=== PATIENT | male | born 1955 | race Caucasian/White ===

== ENCOUNTER 2019-01-13 15:50 | Emergency (ER) | payer BC ==
[~2019-01-13] VITALS: Ht 182.9 cm; Wt 88.6 kg
[2019-01-13] MEDS ORDERED: nystatin 15 GM powder TP SCH (16:55)
--- NOTE | 2019-01-13 17:07 | NUR ---
Spoke with Pt's daughter Sonam to arrange transport for Pt back to [facility]. Pt's daughter stated she would be able to come to [facility] Pt as soon as she was able.
[2019-01-13] MEDS ORDERED: NYSPWD TP (17:32)
[2019-01-13 17:47] VITALS: BP 149/80
== END 2019-01-13 17:54 | disposition home or self-care (01) ==
LOC: ER 15:50
DX: R23.9 Unspecified skin changes (principal); N50.1 Vascular disorders of male genital organs; Z86.73 Personal history of transient ischemic attack (TIA), and cerebral infarction without residual deficits
CPT/HCPCS: 99283